=== PATIENT | female | born 1955 | race Caucasian/White ===

== ENCOUNTER → 2020-06-23 14:02 | Outpatient (BNVA) | payer MEDICARE, OTHER, SELFPAY | PROVIDERS: Visit Provider Dermatology | DX: D17.9 Benign lipomatous neoplasm, unspecified (principal); L57.0 Actinic keratosis; D18.01 Hemangioma of skin and subcutaneous tissue; Z12.83 Encounter for screening for malignant neoplasm of skin | CPT/HCPCS: 17000; 99203 ==

== ENCOUNTER → 2020-07-19 15:08 | Outpatient (BNVA) | payer MEDICARE, OTHER, SELFPAY | PROVIDERS: Visit Provider Registered Nurse | DX: E55.9 Vitamin D deficiency, unspecified (principal); E78.5 Hyperlipidemia, unspecified; E03.9 Hypothyroidism, unspecified | CPT/HCPCS: 80053; 80061; 82306; 84443; 85025 ==

== ENCOUNTER 2020-10-13 05:45 | Inpatient (IN) | payer MEDICARE, OTHER, SELFPAY ==
[2020-10-13] VITALS (23 sets, daily range): BP systolic 87–147; BP diastolic 50–81; PULSE 72–118; RESP 16–21; TEMP 36–37.3; O2SAT 94–100; BMI 28.2
--- NOTE | 2020-10-13 06:10 | ECG_ITS ---
[facility] Test Date: 2020-10-13 Pat Name: Mima Toth Department: Room: Gender: Female Pearl Digger: : 1955 Requested By: Librado Darling Order Number: [id number] Reading MD: JOE GALO Measurements Intervals [place] Rate: 97 P: 40 [place]: 138 QRS: 66 QRSD: 82 T: 67 QT: 345 QTc: 438 Interpretive Statements SINUS RHYTHM POSSIBLE RIGHT VENTRICULAR CONDUCTION DELAY [RSR (QR) IN V1/V2] SEPTAL MYOCARDIAL INFARCTION , OF INDETERMINATE AGE [40+ ms Q WAVE IN V1/V2] No previous ECG available for comparison Electronically Signed On 10-13-2020 19:37:31 WELT INSOLE CHANNELER by JOE GALO [id number]
--- NOTE | 2020-10-13 06:10 | XR_ITS ---
WS: [id number] ABDOMEN 1 VIEW(S) HISTORY: Constipation, low abdominal pain. COMPARISON: None available. Mild diffuse fecal retention. There are a few scattered small foci of increased density in the RIGHT colon and at the rectum is probably medicinal. No obstruction. No suspicious calcifications or masses. Diffuse osteopenia. Prior cholecystectomy. XR/XR KUB portable [id number] IMPRESSION: Mild constipation.
--- NOTE | 2020-10-13 06:22 | ED_ITS ---
HPI - Abdominal Pain General: Chief Complaint: Abdominal Pain Stated Complaint: constipated Time Seen by Provider: 10/13/20 06:07 History of Present Illness: HPI narrative: 65-year-old female presents emergency room complaining of stomach upset. She not had a bowel movement for the last couple of days. She took some laxatives that increased her cramping. She not had any fever sweats chills nausea vomiting or diarrhea. She denies dysuria urgency or frequency no myalgias or flulike symptoms. No cough or shortness of breath. MD elicited complaint: abdominal pain Pertinent past history: constipation Onset (ago): day(s) Pain Consistency: constant Location: Diffuse Severity: moderate Quality: cramping Radiation: none Migration to: no migration Exacerbating factors: other (Laxatives) Relieving factors: movement Associated Symptoms: Reports bloating, change in bowel habits, change in stool character, constipation and GI cramping; Denies anorexia, belching, chills, coffee ground emesis, diarrhea, dyspepsia, dysuria, excessive flatus, fever(s), heartburn, hematochezia, hematuria, hematemesis, fecal incontinence, loose stools, melena, nausea, poor appetite, syncope and vomiting Review of Systems Const: Denies: fever(s) or chills ENMT: Denies: throat pain, ear or mastoid pain, nasal discharge or nasal congestion Card: Denies: syncope Resp: Denies: dyspnea, productive cough or non-productive cough GI: Reports: constipation, bloating, GI cramping, change in bowel habits and change in stool character; Denies: nausea, vomiting, hematemesis, coffee ground emesis, heartburn, diarrhea, belching, excessive flatus, fecal incontinence, hematochezia or melena : Denies: dysuria or hematuria Skin/Breast: Denies: rash or pruritus PFSH ED PFSH: Medical History (Updated 10/13/20 @ 09:54 by Melvin Montilla MD) Anxiety disorder Hypothyroidism (acquired) Jerod's thyroiditis Vitamin D deficiency Surgical History (Updated 10/13/20 @ 09:54 by Melvin Montilla MD) Hx laparoscopic cholecystectomy Family History Father No problems noted. Other Diabetes Social History (Updated 10/13/20 @ 10:00 by Melvin Montilla MD) Smoking and tobacco status: former smoker Quit status (tobacco): has quit using tobacco Year quit tobacco: 2009 Former quit date comment: [id number] history prior to quitting Alcohol intake: current Alcohol intake frequency: few times a week Alcohol type: hard liquor Physical Exam Const: COMMON NORMALS: no acute distress GENERAL APPEARANCE: cooperative and comfortable ORIENTATION/CONSCIOUSNESS: Yes awake, Yes oriented to person, Yes oriented to place and Yes oriented to time HENMT: COMMON NORMALS: normocephalic, atraumatic and hearing grossly normal bilaterally HEAD & SCALP: normocephalic and atraumatic Neck/C-Spine: COMMON NORMALS: no JVD Resp: COMMON NORMALS: normal respiratory effort, No retractions, No use of accessory muscles and clear to auscultation bilaterally AUSCULTATION: clear to auscultation bilaterally Cardio: COMMON NORMALS: no JVD, regular rate, regular rhythm and No murmurs present (Cardio) RATE: regular rate RHYTHM: regular rhythm GI: COMMON NORMALS: Soft to palpation and No hepatosplenomegaly present AUSCULTATION: Yes normoactive bowel sounds PALPATION: Yes Soft to palpation, Yes Tenderness to palpation present (GI) Details: RLQ, No Guarding due to palpation present (GI) and Yes No hepatosplenomegaly present Extremity: COMMON NORMALS: normal to inspection, capillary refill normal, no clubbing, cyanosis or edema, no calf tenderness and no pedal edema Neuro: SENSORIUM/ORIENTATION: Yes oriented to person, Yes oriented to place and Yes oriented to time Skin: COMMON NORMALS: no rashes or lesions noted GENERAL SKIN EXAM: no rashes or lesions noted Course Vital Signs: Vital signs: Vital Signs Temperature 99.2 F 10/13/20 10:12 Pulse Rate 115 H 10/13/20 10:12 Respiratory Rate 18 10/13/20 10:12 Blood Pressure 125/69 10/13/20 10:12 Pulse Oximetry 96 10/13/20 10:12 MDM - Abdominal Pain MDM Narrative: Medical decision making narrative: Patient has an acute appendicitis as seen on CT. She also has a white count with a left shift. UA shows hematuria but nothing else at this point. Discussed with Dr. Montilla he will see the patient in the emergency room. Lab Data: Labs: Lab Results 10/13/20 10/13/20 10/13/20 Range/Units 07:20 07:20 08:00 WBC 14.2 H (4.0-10.0) 10^3/ uL RBC 5.08 (4.1-5.3) 10^6/u L Hgb 14.6 (11.5-15.3) g/dL Hct 46.1 (37.0-47.0) % MCV 90.7 (81-99) fL MCH 28.7 (28.0-34.0) pg MCHC 31.7 (30.0-36.0) g/dL RDW 12.1 (12.1-15.1) % Plt Count 242 (130-400) 10^3/c mm MPV 9.7 (7.4-10.4) fL Neut % (Auto) 88.9 % Lymph % (Auto) 5.6 % [place] % (Auto) 4.3 % Eos % (Auto) 0.0 % Baso % (Auto) 0.4 % Neut # (Auto) 12.59 H (1.8-7.7) 10^3/u L Lymph # (Auto) 0.8 (0.8-4.8) 10^3/u L [place] # (Auto) 0.6 (0.2-0.9) 10^3/u L Eos # (Auto) 0.0 (0.0-0.8) 10^3/u L Baso # (Auto) 0.1 (0.0-0.1) 10^3/u L Nucleated RBC % (a uto) 0 % Nucleated RBCs # 0.0 /100WBC Sodium 136 (136-145) mmol/L Potassium 4.7 (3.5-5.1) mmol/L Chloride 99 (98-107) mmol/L Carbon Dioxide 26 (22-29) mmol/L Anion Gap 15.7 (5-19) BUN 12 (8-23) mg/dL Creatinine 0.9 (0.5-0.9) mg/dL GFR Calculation 62.6 L (90-130) mL/min Glucose 162 H (65-115) mg/dL Calculated Osmolal ity 285 (285-295) mOsm/k g Calcium 9.9 (8.5-10.5) mg/dL Total Bilirubin 0.5 (0.15-1.2) mg/dL AST 18 (0-32) U/L ALT 15 (0-33) U/L Alkaline Phosphata se 86 (35-105) IU/L Total Protein 7.3 (6.6-8.7) g/dL Albumin 4.5 (3.5-5.2) g/dL Globulin 2.8 (1.3-4.6) g/dL Lipase 21 (13-60) U/L Urine Color Yellow (Yellow) Urine Appearance Clear (CLEAR) Urine pH 5.0 (5-7) Ur Specific Gravit y 1.025 (1.005-1.030) Urine Protein Trace (Negative) Urine Glucose (UA) Norm (Normal) Urine Ketones 3+ H (Negative) Urine Blood 3+ H (Negative) Urine Nitrate Negative (Negative) Urine Bilirubin 1+ H (Negative) Urine Urobilinogen Norm (Negative) mg/dL Ur Leukocyte Raegan ase Trace H (Negative) Urine RBC 50-80 H (0-2) /hpf Urine WBC 0-4 H (0-5) /hpf Ur Squamous Epith Cells 0-4 H (0-5) /hpf Amorphous Sediment Not Reportable Urine Bacteria 1+ H (NONE) /hpf Urine Mucus 1+ /hpf Discharge Plan Discharge Patient Disposition: Admitted As Inpatient Admit Provider: Melvin Montilla Clinical Impression: Acute appendicitis Condition: Stable Coding Level of Care Code 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
[2020-10-13 07:33] LABS: Basophils # 0.1 10^3/uL (0.0-0.1); Basophils % 0.4 %; Hematocrit 46.1 % (37.0-47.0); Hemoglobin 14.6 g/dL (11.5-15.3); Lymphocytes # 0.8 10^3/uL (0.8-4.8); Lymphocytes % 5.6 %; Mean Corpuscular HGB Conc 31.7 g/dL (30.0-36.0); Mean Corpuscular Hemoglobin 28.7 pg (28.0-34.0); Mean Corpuscular Volume 90.7 fL (81-99); Mean Platelet Volume 9.7 fL (7.4-10.4); Monocytes # 0.6 10^3/uL (0.2-0.9); Monocytes % 4.3 %; Neutrophils # 12.59 10^3/uL (1.8-7.7); Neutrophils % 88.9 %; Nucleated Red Blood Cells % 0 %; Platelet Count 242 10^3/cmm (130-400); Red Blood Count 5.08 10^6/uL (4.1-5.3); Red Cell Distribution Width 12.1 % (12.1-15.1); White Blood Count 14.2 10^3/uL (4.0-10.0)
[2020-10-13 08:01] LABS: Alanine Aminotransferase 15 U/L (0-33); Albumin Level 4.5 g/dL (3.5-5.2); Alkaline Phosphatase 86 IU/L (35-105); Blood Urea Nitrogen 12 mg/dL (8-23); Calcium 9.9 mg/dL (8.5-10.5); Carbon Dioxide 26 mmol/L (22-29); Chloride 99 mmol/L (98-107); Creatinine Clr Calc Pharmacy 59.4395; Globulin 2.8 g/dL (1.3-4.6); Glomerular Filtration Rate 62.6 mL/min (90-130); Glucose 162 mg/dL (65-115); Lipase 21 U/L (13-60); Osmolality Calculated 285 mOsm/kg (285-295); Sodium 136 mmol/L (136-145); Total Bilirubin 0.5 mg/dL (0.15-1.2); Total Protein 7.3 g/dL (6.6-8.7)
[2020-10-13 08:03] LABS: Anion Gap 15.7 (5-19); Potassium 4.7 mmol/L (3.5-5.1)
[2020-10-13 08:04] LABS: Aspartate Amino Transferase 18 U/L (0-32)
[2020-10-13 08:24] LABS: Add Urine Microscopic? YES; Bilirubin Urine 1+ (Negative); Blood Urine 3+ (Negative); Glucose Urine UA Norm (Normal); Ketones Urine 3+ (Negative); Leukocyte Esterase Urine Trace (Negative); Nitrate Urine Negative (Negative); Protein Urine Trace (Negative); Specific Gravity, Urine 1.025 (1.005-1.030); Urine Appearance Clear (CLEAR); Urine Color Yellow (Yellow); Urobilinogen Urine Norm (Negative)
--- NOTE | 2020-10-13 08:29 | CT_ITS ---
WS: [id number] Exam: CT abdomen pelvis w con* [id number] Date/Time of Exam: 10/13/2020 8:38 AM Reason For Exam: abd pain DLP: 475.[address] scans at [facility] use at least one of these dose optimization techniques: automat ed exposure control; mA and/or kV adjustment per patient size (includes targeted exams where dose is matched to clinical indication); or iterative reconstruction. Lower lung zones are clear. The liver, spleen, pancreas and stomach appear normal. The abdominal aort a is normal in caliber. Unremarkable kidneys and adrenal glands. The portal vein and IVC are patent. No free air or lymphadenopathy. The gallbladder is surgically absent. Enlarged inflamed appendix note d consistent with acute appendicitis. No perforation or abscess. The appendix measures almost 12 mm i n greatest diameter. There is extensive periappendiceal inflammation and stranding. There is mild dil atation of the terminal ileum. This may represent early small bowel obstruction versus reactive ileu s. Small amount of free interloop fluid in the pelvis. No pelvic mass or lymphadenopathy. Intact urin hilda bladder. Bony structures are unremarkable. CT/CT abdomen pelvis w con* [id number] IMPRESSION: 1. Findings consistent with acute appendicitis without perforation or abscess. 2. Mild dilatation of the terminal ileum. Early small bowel obstruction not exc luded but this may represent reactive ileus These findings were discussed by phone with Dr. Servin the attending ER bradley noel at 9:13 AM 10/13/2020.
[2020-10-13 08:38] LABS: RBC Urine 50-80 /hpf (0-2)
[2020-10-13 08:39] LABS: Add Urine Culture? Yes; Bacteria Urine 1+ /hpf; Mucus Urine 1+ /hpf; Squamous Epithelial Cell Urine 0-4 /hpf (0-5); WBC Urine 0-4 /hpf (0-5)
[2020-10-13] MEDS: iohexol 300 mg/mL 100 mL Btl IV (08:53)
--- NOTE | 2020-10-13 09:01 | PC.NURSE ---
pt back from ct
[2020-10-13] MEDS: ondansetron 2 mg/ML SDV 2 mL 4 MG IVP (09:35)
--- NOTE | 2020-10-13 09:35 | PM.HP ---
Providers/Chief Complaint Chief Complaint: constipated/abdominal pain History of Present Illness Mima Toth is a 65 year old female who started having some epigastric abdominal discomfort 2 days ago. She initially just thought she was constipated even though she had had a normal bowel movement the day before. She took some Pepto-Bismol and some laxatives but continued to have pain yesterday. This was associated with nausea and retching. She has had some chills but I do not believe she is taken her temperature at home. Her pain increased to a 10/10 at around 2 AM this morning. She eventually came to the emergency department where a CAT scan revealed evidence of acute appendicitis. Review of Systems General: Reports: 10 or more systems reviewed and unremarkable except in HPI and below Const: Reports: chills Resp: Denies: dyspnea or productive cough GI: Reports: abdominal pain, nausea and vomiting (Retching); Denies: hematemesis : Denies: difficulty voiding Medications/Allergies Home Medications Medication Instructions Recorded Confirmed Last Taken Type levothyroxine 88 mcg tablet 88 mcg PO DAILY 07/19/20 09/09/20 Unknown History bupropion HCl 300 mg 24 hr tablet, 300 mg PO QAM #90 tab 09/09/20 09/09/20 Unknown Rx extended release Allergies Allergy/AdvReac Type Severity Reaction Status Date / Time codeine AdvReac Nausea Verified 10/13/20 10:01 PFSH Acute PFSH: Medical History (Updated 10/13/20 @ 09:54 by Melvin Montilla MD) Anxiety disorder Hypothyroidism (acquired) Jerod's thyroiditis Vitamin D deficiency Surgical History (Updated 10/13/20 @ 09:54 by Melvin Montilla MD) Hx laparoscopic cholecystectomy Family History Father No problems noted. Other Diabetes Social History (Updated 10/13/20 @ 10:00 by Melvin Montilla MD) Smoking and tobacco status: former smoker Quit status (tobacco): has quit using tobacco Year quit tobacco: 2009 Former quit date comment: 37-ltrk-bagt history prior to quitting Alcohol intake: current Alcohol intake frequency: few times a week Alcohol type: hard liquor Vitals/I&O/Wt Last Vital Signs Temp 98 F 10/13/20 05:58 Pulse 82 10/13/20 05:52 Resp 18 10/13/20 08:00 BP 147/68 10/13/20 08:00 Pulse Ox 98 10/13/20 05:52 Weight last 48 hrs Weight 135 lb Physical Exam Narrative: EXAM NARRATIVE: The patient was encountered in her room in the emergency department. She does not appear to be in any acute distress. The pupils are equal. No carotid bruits are heard. The lungs are clear. The heart is regular. The patient may be borderline tachycardic. The abdomen reveals few bowel sounds. She does have some mild tenderness in the left lower quadrant with an equivocal Rovsing's sign. Her maximum point of tenderness is in the right lower quadrant over McBurney's point. Percussion tenderness is present. No obvious masses are palpated. The extremities reveal no edema. Neurologically the patient appears to be grossly intact. Data : 10/13/20 07:20 10/13/20 07:20 CT Abd/Pel: Radiologist's impression: CT abdomen/pelvis 10/13/2020 IMPRESSION: 1. Findings consistent with acute appendicitis without perforation or abscess. 2. Mild dilatation of the terminal ileum. Early small bowel obstruction not excluded but this may represent reactive ileus A&P Assessment and plan (1) Acute appendicitis: CT reviewed. I agree with the assessment. I discussed appendicitis and appendectomy's with the patient in some detail. We discussed details of both conservative and surgical management. Surgical risks of bleeding, infection, internal organ injury, etc. were all gone over. The patient seems to understand and would like to proceed with an appendectomy today. The last time the patient had anything by mouth was 2 AM this morning. We will make arrangements for a laparoscopic or possibly open appendectomy later this morning. Status: Acute Attestations Medical Necessity Statement*: Based on my medical assessment, presenting symptoms and consideration of the scope of surgical therapy, I expect this patient will require treatment in the hospital for a period of time spanning less than 2 midnights, and is therefore being placed in observation status. The patient is actually already requesting to possibly go home later today. I told her if there are no contraindications or problems with surgery that will be a good possibility. Coding Level of Care Code Acute Produce Team Member for [facility] Reece Diagnoses Acute appendicitis K35.80
[2020-10-13] MEDS: piperacillin-tazobactam 4.5 GM in sodium chloride 0.9% (plus) 50 ML IV (09:58)
--- NOTE | 2020-10-13 10:18 | P.ANESASSM_ITS ---
Pre-Anesthetic Assessment Pre-Anesthetic Assessment: Height/Weight: Height 1.47 m Weight 61.235 kg Temp Pulse Resp BP Pulse Ox 99.2 F 115 H 18 125/69 96 10/13/20 10:12 10/13/20 10:12 10/13/20 10:12 10/13/20 10:12 10/13/20 10:12 Preop Diagnosis: acute appendicitis Proposed Procedure: Operation Date: 10/13/20 10:30 Proposed Procedures p Laparoscopic Appendectomy(Not Applicable) - Melvin Montilla MD Was Beta Vargas taken within 24 hours: N/A Last intake: 0200 water Social: Social History: Alcohol (1 dram aday ) and No tobacco Exam: Pre-Anes Outpt Exam: alert, oriented x 3, clear to auscultation bi laterally and regular rate & rhythm Airway: Submandibular: WNL Cervical ROM: WNL MP: 2 Dentition: Full Pulmonary: Pulmonary: None reported CV/HEM: CV/HEM: None reported : : None reported Hepatic: Hepatic: None reported GI: Comments: abd pain Metabolic: Metabolic: Thyroid Musc/skel: Musc/skel: None reported Neuropsych: Neuropsych: None reported Anesthetic Plan: ASA status: 2E Anesthesia: General PFSH Anesthesia PFSH: Medical History (Updated 10/13/20 @ 09:54 by Melvin Montilla MD) Anxiety disorder Hypothyroidism (acquired) Jerod's thyroiditis Vitamin D deficiency Surgical History (Updated 10/13/20 @ 09:54 by Melvin Montilla MD) Hx laparoscopic cholecystectomy Family History Father No problems noted. Other Diabetes Social History (Updated 10/13/20 @ 10:00 by Melvin Montilla MD) Smoking and tobacco status: former smoker Quit status (tobacco): has quit using tobacco Year quit tobacco: 2009 Former quit date comment: 60-kaji-zwyn history prior to quitting Alcohol intake: current Alcohol intake frequency: few times a week Alcohol type: hard liquor Data Anesthesia CBC & Chem 7: 10/13/20 07:20 10/13/20 07:20 Other Labs: Laboratory Results - last 48 hr 10/13/20 10/13/20 10/13/20 07:20 07:20 08:00 WBC 14.2 H RBC 5.08 Hgb 14.6 Hct 46.1 MCV 90.7 MCH 28.7 MCHC 31.7 RDW 12.1 Plt Count 242 MPV 9.7 Neut % (Auto) 88.9 Lymph % (Auto) 5.6 [place] % (Auto) 4.3 Eos % (Auto) 0.0 Baso % (Auto) 0.4 Neut # (Auto) 12.59 H Lymph # (Auto) 0.8 [place] # (Auto) 0.6 Eos # (Auto) 0.0 Baso # (Auto) 0.1 Nucleated RBC % (auto) 0 Nucleated RBCs # 0.0 Sodium 136 Potassium 4.7 Chloride 99 Carbon Dioxide 26 Anion Gap 15.7 BUN 12 Creatinine 0.9 GFR Calculation 62.6 L Glucose 162 H Calculated Osmolality 285 Calcium 9.9 Total Bilirubin 0.5 AST 18 ALT 15 Alkaline Phosphatase 86 Total Protein 7.3 Albumin 4.5 Globulin 2.8 Lipase 21 Urine Color Yellow Urine Appearance Clear Urine pH 5.0 Ur Specific [place] 1.025 Urine Protein Trace Urine Glucose (UA) Norm Urine Ketones 3+ H Urine Blood 3+ H Urine Nitrate Negative Urine Bilirubin 1+ H Urine Urobilinogen Norm Ur Leukocyte Esterase Trace H Urine RBC 50-80 H Urine WBC 0-4 H Ur Squamous Epith Cells 0-4 H Amorphous Sediment Not Reportable Urine Bacteria 1+ H Urine Mucus 1+ Cardiac Studies: No Data to Display
[2020-10-13] MEDS: sodium chlor 0.9% + KCl 20 mEq 20 MEQ/1,000 ML BAG 30 MEQ IV (10:46)
[2020-10-13] MEDS: metroNIDAZOLE IV 500 MG/100 ML PREMIX 100 MG IV (10:51)
--- NOTE | 2020-10-13 11:42 | P.OP_ITS ---
Operative Report Date of procedure: October 13, 2020 Pre-op Diagnosis: Acute appendicitis. Post-op diagnosis: same Procedure Done: Laparoscopic appendectomy. Specimens removed/disposition: Appendix. Surgeon: Melvin Montilla Anesthesia: General Estimated blood loss (mL): 25 Complications: None. Condition: stable Disposition: PACU Procedure: The patient was brought to the Operating Room and was placed in a supine position on the operating room table. General endotracheal anesthesia was induced. The abdomen was prepped and draped in a sterile fashion. A small vertical incision was carried out in the superior aspect of the umbilicus. Blunt dissection was carried out down to the fascia, which was grasped with a Jory clamp. A stay suture of 0 Vicryl was placed on either side of the midline and the midline fascia was incised. The underlying peritoneum was opened bluntly and the Seema port was placed directly into the peritoneal cavity and was held in place with the inflatable balloon. The peritoneal cavity was insufflated with carbon dioxide. The laparoscope was used to inspect the peritoneal cavity. The patient had some subacute adhesions with some exudate present in the right lower quadrant. No other gross abnormalities were initially noted. Two 5-millimeter ports were placed in the left lower quadrant under direct vision. The patient was tilted in a Trendelenburg position and slightly to the left side. A laparoscopic [place] was used to elevate the cecum and the appendix was identified. The appendix was stuck posteriorly and somewhat laterally along the pelvic sidewall. There were some adhesions that were clearly subacute involving the region but others that seem more chronic. All of the adhesions were taken down using blunt dissection with some cautery to maintain hemostasis. The appendix was further freed using blunt dissection and was then elevated. The tissue around the appendix was friable and some oozing occurred from the mesoappendix and surrounding tissue. The mesoappendix was divided using cautery to maintain hemostasis at the base of the appendix. The base of the appendix appeared healthy and was divided using an endoscopic stapler. The appendix was removed from the peritoneal cavity after being placed in a laparoscopic bag. The right lower quadrant and pelvis were irrigated. The patient was found to have some small bowel loops that were adherent to each other with some exudate and these were all carefully but no defined abscess was ever found. The staple line on the cecum was identified and appeared to be in good condition. The Seema port was removed from the umbilical site and the stay sutures of Vicryl were tied to each other at the umbilicus, closing the fascial defect so that it was airtight. A final round of irrigation was carried out in the right lower quadrant and the pelvis. No ongoing problems were seen. The remaining ports were removed from the abdominal wall as the pneumoperitoneum was evacuated. All skin incisions were closed using inverted interrupted sutures of 4-0 Vicryl. Benzoin and Steri-Strips were placed over the incisions and Band- Aids followed. The patient was taken to the Recovery Room in stable condition postoperatively.
--- NOTE | 2020-10-13 12:05 | SUR.PHASEI ---
PT AWAKE ALERT ON RA TRIAL PT DENIES NAUSEA AND COLD VSS ABD SOFT, PT ASKING FOR ICE CHIPS WILL CALL REPORT TO FLOOR
--- NOTE | 2020-10-13 12:41 | SUR.PHASEI ---
1230 PT TO FLOOR PER BED WITH MASK ON , PT ALERT TALKATIVE TAKING ICE CHIPS VSS PT UP WALKED TO BED ABD SOFT 3 DRESSING TO AB D/I HANDOFF AT BEDSIDE TO NURSE SLEENA.
[2020-10-13] MEDS: D5-NS 0.45% + KCL 20 mEq 20 MEQ/1,000 ML BAG 100 MEQ IV (12:52)
[2020-10-13] MEDS: famotidine 20 mg/2 mL INJ IVP (12:54)
[2020-10-13] MEDS: ketorolac 30 mg/mL INJ 15 MG IVP ×2 (12:54→17:48)
[2020-10-13] MEDS: piperacillin-tazobactam 3.375 GM in sodium chloride 0.9% (plus) 50 ML IV ×2 (12:54→21:38)
[2020-10-13] MEDS: heparin 5,000 unit/mL INJ 1 mL 5000 UNIT SUBCUT (12:54)
[2020-10-13] MEDS: levalbuterol 0.63 mg/3 mL Neb INHALATION ×3 (14:12→20:01)
[2020-10-13] MEDS: lactated ringers 500 ML 999 ML IV (16:18)
--- NOTE | 2020-10-13 18:56 | PC.NURSE ---
SHIFT SUMMARY PATIENT HAS DONE WELL TODAY. NO COMPLAINTS OF PAIN. SURGICAL INCISIONS C/D/I. GOOD URINE OUTPUT. TOLERATING DIET WELL. VITAL SIGNS GOOD. BP SOFT, PATIENT STATED THAT THIS IS HER NORMAL. DR. ALEMAN MADE AWARE. POSSIBLE DISCHARGE TOMORROW.
--- NOTE | 2020-10-13 21:06 | PM.PACU ---
PACU note Post-Anesthesia Exam: awake and vital signs stable Disposition: back to floor
[2020-10-13] MEDS: lanolin oint 7 gm 1 APPLIC TOPICAL (22:45)
[2020-10-14] VITALS (10 sets, daily range): BP systolic 96–119; BP diastolic 51–74; PULSE 61–89; RESP 16–18; TEMP 36.4–37.2; O2SAT 94–100
[2020-10-14] MEDS: D5-NS 0.45% + KCL 20 mEq 20 MEQ/1,000 ML BAG 100 MEQ IV ×3 (00:37→21:24)
[2020-10-14] MEDS: heparin 5,000 unit/mL INJ 1 mL 5000 UNIT SUBCUT ×2 (00:37→12:51)
[2020-10-14] MEDS: famotidine 20 mg/2 mL INJ IVP ×2 (00:41→12:11)
[2020-10-14] MEDS: ketorolac 30 mg/mL INJ 15 MG IVP ×4 (00:41→18:13)
[2020-10-14 03:12] LABS: Basophils % 0.1 %; Hematocrit 35.5 % (37.0-47.0); Hemoglobin 11.3 g/dL (11.5-15.3); Lymphocytes # 0.9 10^3/uL (0.8-4.8); Lymphocytes % 6.8 %; Mean Corpuscular HGB Conc 31.8 g/dL (30.0-36.0); Mean Corpuscular Hemoglobin 29.3 pg (28.0-34.0); Mean Platelet Volume 9.1 fL (7.4-10.4); Monocytes # 0.9 10^3/uL (0.2-0.9); Monocytes % 6.2 %; Neutrophils # 11.83 10^3/uL (1.8-7.7); Neutrophils % 85.6 %; Nucleated Red Blood Cells % 0 %; Platelet Count 196 10^3/cmm (130-400); Red Blood Count 3.86 10^6/uL (4.1-5.3); Red Cell Distribution Width 12.4 % (12.1-15.1); White Blood Count 13.8 10^3/uL (4.0-10.0)
[2020-10-14 03:43] LABS: Anion Gap 13.2 (5-19); Blood Urea Nitrogen 12 mg/dL (8-23); Calcium 8.5 mg/dL (8.5-10.5); Carbon Dioxide 24 mmol/L (22-29); Chloride 107 mmol/L (98-107); Glomerular Filtration Rate 71.8 mL/min (90-130); Glucose 187 mg/dL (65-115); Osmolality Calculated 295 mOsm/kg (285-295); Potassium 4.2 mmol/L (3.5-5.1); Sodium 140 mmol/L (136-145)
[2020-10-14] MEDS: piperacillin-tazobactam 3.375 GM in sodium chloride 0.9% (plus) 50 ML IV ×3 (05:30→21:21)
--- NOTE | 2020-10-14 07:07 | P.PN_ITS ---
Subjective Subjective: Interval history: The patient is somewhat sore this morning. She is passing flatus. She is a little nervous about going home because she had a vaginal tear during a previous and the area got infected twice. She was wondering if she needed to stay here longer for more intravenous antibiotics. She continues on intravenous Zosyn. Vitals/I&O/Wt Last Vital Signs Temp 97.8 F 10/14/20 05:12 Pulse 83 10/14/20 05:12 Resp 18 10/14/20 05:12 BP 107/63 10/14/20 05:12 Pulse Ox 98 10/14/20 05:12 10/13/20 10/14/20 10/14/20 22:59 06:59 14:59 Intake Total 1050 / 1250 50 / 1250 Output Total 300 / 1225 800 / 1225 Balance 750 / 25 -750 / 25 Weight last 48 hrs Weight 135 lb Physical Exam Narrative: EXAM NARRATIVE: Bowel sounds are present. The incisions look good. She has the expected amount of tenderness. Urinary Catheter Management^: Straight: Cath Placed During This Visit: no Data : 10/14/20 02:43 10/14/20 02:43 A&P Assessment and plan (1) Acute appendicitis: Status post laparoscopic appendectomy on 10/13/2020. The patient had quite a bit of exudate and and early phlegmon in the right lower quadrant at the time of laparoscopy, but no marleen abscess was identified. Her white blood cell count, not surprisingly, remains somewhat elevated this morning. She is afebrile. Given her concerns regarding infections, I told her that we could leave her here and at least reevaluate the situation later this afternoon. I told her that we always have the option of sending her home on an oral antibiotic, which is what I would probably elect to do, anyway. She would like to rediscuss the situation this afternoon. Status: Acute Attestations Medical Necessity Statement*: Based on my medical assessment, presenting symptoms and consideration of the scope of surgical therapy, I expect this patient will require treatment in the hospital for a period of time spanning less than 2 midnights, and is therefore being placed in observation status. We will evaluate her situation later this afternoon. Coding Level of Care Code Acute Product Safety Coordinator for [facility] Diagnoses Acute appendicitis K35.80
[2020-10-14] MEDS: levalbuterol 0.63 mg/3 mL Neb INHALATION ×3 (08:29→21:20)
--- NOTE | 2020-10-14 11:14 | ANE.PACU2 ---
Inpatient post-anesthesia follow up: Airway intact: Yes Vital signs: Temperature 97.6 F Pulse Rate [Monito r] 82 Pulse Rate 85 Respiratory Rate 16 Blood Pressure [Le ft Arm] 116/58 Blood Pressure 99/51 Pulse Oximetry 100 Oxygen Delivery Me thod Room Air Oxygen Flow Rate 8 Fraction of Inspir ed Oxygen Hydration adequate: Yes Nausea and vomiting: No Pain level: 1 Mental status: Baseline
--- NOTE | 2020-10-14 13:55 | PC.CHAP ---
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 [] Patient/Family/Request visit [] Outpatient visit [] Follow-up visit [] Physician referral [] Code/Alert [x] Routine visit [] Staff referral [] Actively dying [] Patient sleeping [] Family support [] [] Out of room [] Palliative care [] [x] Receiving care in room [] Pre-surgical visit [] Trauma [] Long length of stay [] ICU visit [] Other: Relational/Emotional Strength [x] Patient feels connected with others/family/visitors/staff [] Distress [] Loneliness/isolation [] Abandonment Spirituality of Patient [x] Person of Ying [] Attends Islam of their Ying [x] Believes in Prayer [] Reads Bible or Pentecostalism materials [] There are Spiritual issues to be addressed Clinical Trial Leader Interventions [x] Prayer [x] Active listening [x] Non-anxious presence [x] Spiritual/emotional support [] Crisis/trauma care [x] Spiritual counseling [] Bereavement support [] Provided bereavement packet [] Provided Bible/devotional materials [] Provided toy/stuffed animal, coloring book to patient or family member [] Provided Communion [] Anointing/[place] [] Salvation [x] Completed spiritual assessment [] Other: Impact on Illness or Injury [] Angry [] Fearful [x] Anxious [] Often cries [] Exhaustion [] Unable to work [] Unable to attend faith [] Unable to walk/stand [] Unable to read [] Unable to drive [] Unable to eat/drink [] Unable to sleep [] Unable to be with family [] Patient intubated [] Other: Summary In pain had apendex surgery ihas a good attitude, will get to home Time spent with patient 10 mins
[2020-10-15] VITALS: BP 118/70; PULSE 86; RESP 16; TEMP 36.3; O2SAT 98
[2020-10-15] MEDS: heparin 5,000 unit/mL INJ 1 mL 5000 UNIT SUBCUT (01:04)
[2020-10-15] MEDS: ketorolac 30 mg/mL INJ 15 MG IVP ×2 (01:05→06:19)
[2020-10-15] MEDS: famotidine 20 mg/2 mL INJ IVP (01:06)
[2020-10-15 04:00] VITALS: BP 129/81; PULSE 88; RESP 20; TEMP 36.6; O2SAT 99
[2020-10-15] MEDS: piperacillin-tazobactam 3.375 GM in sodium chloride 0.9% (plus) 50 ML IV (04:58)
[2020-10-15 06:03] LABS: Basophils # 0.1 10^3/uL (0.0-0.1); Basophils % 0.5 %; Eosinophils # 0.2 10^3/uL (0.0-0.8); Eosinophils % 1.5 %; Hematocrit 36.2 % (37.0-47.0); Lymphocytes # 2.7 10^3/uL (0.8-4.8); Lymphocytes % 25.1 %; Mean Corpuscular HGB Conc 30.4 g/dL (30.0-36.0); Mean Corpuscular Hemoglobin 28.9 pg (28.0-34.0); Mean Corpuscular Volume 95.3 fL (81-99); Mean Platelet Volume 9.3 fL (7.4-10.4); Monocytes # 0.7 10^3/uL (0.2-0.9); Monocytes % 6.1 %; Neutrophils # 6.98 10^3/uL (1.8-7.7); Neutrophils % 65.7 %; Nucleated Red Blood Cells % 0 %; Platelet Count 209 10^3/cmm (130-400); Red Cell Distribution Width 12.8 % (12.1-15.1); White Blood Count 10.6 10^3/uL (4.0-10.0)
[2020-10-15] MEDS: HYDROcodone-acetaminophen 5-325 mg Tablet PO (07:40)
[2020-10-15] MEDS: D5-NS 0.45% + KCL 20 mEq 20 MEQ/1,000 ML BAG 100 MEQ IV (07:40)
[2020-10-15 08:00] VITALS: BP 97/60; PULSE 80; RESP 18; TEMP 36.7; O2SAT 98
--- NOTE | 2020-10-15 09:26 | P.DS_ITS ---
Discharge Providers Date of Admission: 10/14/20 14:46 Date of Discharge: October 15, 2020 Attending Provider at Admission: Melvin Montilla MD Attending Provider at Discharge: Melvin Montilla MD Diagnoses at Discharge Discharge Diagnosis (1) Acute appendicitis: Status: Acute Reason for Visit Reason for Visit: constipated/abdominal pain Hospital Course Hospital Course This is a 65-year-old white female who developed abdominal pain in the days preceding her presentation to the local emergency department where a CAT scan showed evidence of acute appendicitis. At the time of laparoscopy she was found to have no gross evidence of perforation but there was some light inflammatory peel in the abdomen and the presence of perhaps an early phlegmon. An appendectomy was performed and her peritoneal cavity was extensively irrigated out. She was kept on broad-spectrum antibiotics postoperatively. The following day her white blood cell count remained mildly elevated although she was afebrile. She had had a previous experience with a vaginal infection/dehiscence x2 following a repair years ago after childbirth, and had no objection to staying in the hospital for another day of intravenous antibiotics. The following morning her white blood cell count had essentially returned to normal. She remained afebrile. She was tolerating a soft diet. We discussed her going home on some oral antibiotics and she was anxious to leave that second day. She was instructed with respect to activity limitations, wound care, diet, etc. An appointment will be made for her to follow-up with me in the office as an outpatient. She will contact me in the interim if she has any concerns. Physical Exam Narrative: EXAM NARRATIVE: At the time of discharge the patient had good bowel sounds in all of her laparoscopic incisions appear to be healing well. Urinary Catheter Management^: Straight: Cath Placed During This Visit: no Discharge Data Data Completed and Pending: Completed Studies During Hospitalization Category Date Time Status CT abdomen pelvis w con* [id number] Stat Cat Scan 10/13/20 08:29 Completed XR KUB portable [id number] Stat Exams 10/13/20 06:10 Completed Pending at discharge Category Date Time Status Urine Culture Sta t Lab 10/13/20 08:00 Results Pathology: Surgic al [PTH] Routine Pth 10/13/20 11:37 Received Labs from last 24 hours 10/15/20 05:35 WBC 10.6 H RBC 3.80 L Hgb 11.0 L Hct 36.2 L MCV 95.3 MCH 28.9 MCHC 30.4 RDW 12.8 Plt Count 209 MPV 9.3 Neut % (Auto) 65.7 Lymph % (Auto) 25.1 [place] % (Auto) 6.1 Eos % (Auto) 1.5 Baso % (Auto) 0.5 Neut # (Auto) 6.98 Lymph # (Auto) 2.7 [place] # (Auto) 0.7 Eos # (Auto) 0.2 Baso # (Auto) 0.1 Nucleated RBC % (a uto) 0 Nucleated RBCs # 0.0 Vitals: Last Vital Signs Temp 98.0 F 10/15/20 08:00 Pulse 80 10/15/20 08:00 Resp 18 10/15/20 08:00 BP 97/60 10/15/20 08:00 Pulse Ox 98 10/15/20 08:00 Discharge Plan Discharge Patient Disposition: Home Condition: Stable Prescriptions: New hydrocodone-acetaminophen 5-325 mg tablet 1 - 2 tab PO Q5H PRN (Reason: pain) Qty: 20 RF: 0 Augmentin 500-125 mg tablet 1 tab PO BID Qty: 15 RF: 0 Continued levothyroxine 88 mcg tablet 88 mcg PO DAILY RF: 0 bupropion HCl [Wellbutrin XL] 300 mg tablet extended release 24 hr 300 mg PO QAM Qty: 90 RF: 3 zinc 1 cap PO DAILY PRN (Reason: unknown) RF: 0 Discharge Orders: Discharge Order (Routine); Ordered 10/15/20 Ordered By: Melvin Montilla Referrals: Melvin Montilla MD [Physician] - 10/26/20 3:30 pm (s.) Discharge Diet: Advance as tolerated Discharge Activity: Limit activity as instructed Patient Instructions: Hydrocodone/Acetaminophen (By mouth), Amoxicillin/Clavulanate Potassium (By mouth), Appendicitis (GEN), Laparoscopic Appendectomy (DC) Activity Restrictions/Additional Instructions: 1. Discharge to home today. 2. Appointment to see Dr. Montilla in 10-14 days as above. 3. Leave Steri-Strip(s) on, may shower. 4. [place] 5/325 1-2 tablets by mouth every 5 hours as needed for pain. #20, no refills. 5. Augmentin 500/125 1 tablet by mouth twice daily until gone. Dispense #15, no refills. No lifting over 20 pounds, no repetitive bending or twisting, no strenuous pushing / pulling or other heavy activity. Ambulate regularly. May go up and down steps if needed. 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
[2020-10-15 11:07] VITALS: BP 97/60; PULSE 80; RESP 18; TEMP 36.7; O2SAT 98
--- NOTE | 2020-10-15 11:09 | PC.CHAP ---
Pastoral Care Encounter/Spiritual Assessment Type of Contact [] Declined provider relations consultant visit [] Patient/Family/Request visit [] Outpatient visit [] Follow-up visit [] Physician referral [] Code/Alert [] Routine visit [] Staff referral [] Actively dying [] Patient sleeping [] Family support [] [] Out of room [] Palliative care [] [xx] Receiving care in room [] Pre-surgical visit [] Trauma [] Long length of stay [] ICU visit [xx] Other: Follow up needed Relational/Emotional Strength [] Patient feels connected with others/family/visitors/staff [] Distress [] Loneliness/isolation [] Abandonment Spirituality of Patient [] Person of Ying [] Attends Latter Day of their Ying [] Believes in Prayer [] Reads Bible or Voodoo materials [] There are Spiritual issues to be addressed Electrotherapist Interventions [] Prayer [] Active listening [] Non-anxious presence [] Spiritual/emotional support [] Crisis/trauma care [] Spiritual counseling [] Bereavement support [] Provided bereavement packet [] Provided Bible/devotional materials [] Provided toy/stuffed animal, coloring book to patient or family member [] Provided Communion [] Anointing/[place] [] Salvation [] Completed spiritual assessment [] Other: Impact on Illness or Injury [] Angry [] Fearful [] Anxious [] Often cries [] Exhaustion [] Unable to work [] Unable to attend mandaeism [] Unable to walk/stand [] Unable to read [] Unable to drive [] Unable to eat/drink [] Unable to sleep [] Unable to be with family [] Patient intubated [] Other: Summary Med staff was working with patient so Electrotherapist did not interrupt. Time spent with patient 2 minutes
--- NOTE | 2020-10-15 11:19 | PC.NURSE ---
DC instruction given to patient voiced full understanding, IV DC'd cath intact bleeding controlled with 2x2 and coban. patient to main entrance via wheelchair to private vehicle with zero difficulties
== END 2020-10-15 11:19 | disposition home or self-care (01) | DRG 343 ==
LOC: ER 09:58 → MEDSURG 10:01
PROVIDERS: Admitting Provider Surgery; Emergency Provider Family Medicine; Visit Provider Surgery
PROC: 0DTJ4ZZ Resection of Appendix, Percutaneous Endoscopic Approach (ICD-10-PCS; CPT 44970; principal; 2020-10-13 10:30)
DX: K35.80 Unspecified acute appendicitis (principal); F41.9 Anxiety disorder, unspecified; E03.9 Hypothyroidism, unspecified; E55.9 Vitamin D deficiency, unspecified; Z87.891 Personal history of nicotine dependence
CPT/HCPCS: 12345; 36415; 74018; 74177; 80048; 80053; 81001; 83690; 85025; 87077; 87086; 87186; 88304; 93005; 94640; 96372; 96375; 99283; G0378; J0131; J0690; J1100; J1644; J1885; J2405; J2543; J2704; J2710; J2765; J3010; J3490; J7614; Q9967; S0030

== ENCOUNTER 2020-10-16 16:42 | Emergency (ER) | payer MEDICARE, OTHER, SELFPAY ==
[2020-10-16 16:53] VITALS: BP 101/68; PULSE 153; RESP 20; TEMP 36.6; O2SAT 96; BMI 28.2
--- NOTE | 2020-10-16 16:58 | XRR_ITS ---
PROCEDURE INFORMATION: Exam: XR Chest, 1 View Exam date and time: 10/16/2020 5:04 PM Age: 65 years old Clinical indication: Tachypnea; Additional info: Palpitations TECHNIQUE: Imaging protocol: XR of the chest Views: 1 view. COMPARISON: No relevant prior studies available. FINDINGS: Lungs: The lungs are hyperinflated with mild basilar fibrosis. There is also mild left basilar atelectasis versus scarring. There is no lobar consolidation. The pulmonary vascularity is within normal limits. Pleural space: Unremarkable. No pleural effusion. No pneumothorax. Heart/Mediastinum: Unremarkable. No cardiomegaly. Bones/joints: No acute abnormality. XR/XR chest 1V portable [id number] IMPRESSION: The lungs are hyperinflated with mild basilar fibrosis. There is also mild left basilar atelectasis versus scarring.
--- NOTE | 2020-10-16 16:58 | CTR_ITS ---
PROCEDURE INFORMATION: Exam: CT Angiography Chest With Contrast Exam date and time: 10/16/2020 5:33 PM Age: 65 years old Clinical indication: Other: Tachyccardia; Prior surgery; Surgery date: 3-7 days post-operative; Patient HX: 3 days post op appy C/O tachycardia; Additional info: Dyspnea, new onset a. Fib, recent surgery. TECHNIQUE: Imaging protocol: Computed tomographic angiography of the chest with intravenous contrast. 3D rendering (Not supervised by radiologist): MIP and/or 3D reconstructed images were created by the technologist. Radiation optimization: All CT scans at this facility use at least one of these dose optimization techniques: automated exposure control; mA and/or kV adjustment per patient size (includes targeted exams where dose is matched to clinical indication); or iterative reconstruction. Contrast material: OMNI 350; Contrast volume: 58 ml; Contrast route: INTRAVENOUS (IV); COMPARISON: CR (CHEST, ) 10/16/2020 5:23 PM RADIATION DOSE METRICS: Total DLP (mGy-cm): 492.42 FINDINGS: Pulmonary arteries: There is no pulmonary embolus. Aorta: Unremarkable. No aortic aneurysm. No aortic dissection. Lungs: There is right basilar atelectasis versus minimal pneumonitis. There is trace tree-in-bud pneumonitis in the left lower lobe. No lobar consolidation. Pleural space: Unremarkable. No pneumothorax. No pleural effusion. Heart: Unremarkable. No cardiomegaly. No pericardial effusion. Mediastinal space: A small hiatal hernia is present. Lymph nodes: Unremarkable. No enlarged lymph nodes. Liver: There is a diffuse decrease in hepatic parenchymal density, consistent with fatty infiltration. Gallbladder and bile ducts: There has been a cholecystectomy. Bones/joints: Unremarkable. No acute fracture. Soft tissues: Unremarkable. CT/CT angio chest PE protcl [id number] IMPRESSION: 1. There is no pulmonary embolus. 2. There is right basilar atelectasis versus minimal pneumonitis. 3. There is trace tree-in-bud pneumonitis in the left lower lobe. Radiation Dose CTDIVOL = (mGy): DLP = 492.42 (mGy-cm)
--- NOTE | 2020-10-16 17:09 | W.ED.ARRPALP ---
Documented by User: Pilar Willingham 10/16/20 17:59 HPI - Arrhythmia/Palpitations General: Chief Complaint: Arrhythmia/Palpitations Stated Complaint: high heart rate Time Seen by Provider: 10/16/20 16:58 Source: patient and family Mode of arrival: ambulatory Limitations: no limitations History of Present Illness: HPI narrative: Mima is a very nice 65-year-old female who comes in complaining of palpitations. Patient states she has had this numerous times throughout her life she has had an extensive work-up but no cause could ever be determined. Today symptoms were no different than they have been multiple times in the past. Patient denies any chest pain, shortness of breath, syncope or near syncope. Patient of note did recently have an appendectomy and is recovering well. She otherwise denies any complaints or concerns. In the past she says her symptoms were last anywhere from a few minutes to just a few seconds. Today symptoms lasted a few hours and because they did not resolve like they normally do she decided to come into the hospital. Associated symptoms: Deny diaphoresis, nausea, pre-syncope, syncope or vomiting Review of Systems Const: Denies: fever(s), chills, body aches, fatigue, malaise or diaphoresis Eyes: Denies: change in vision, blurry vision, photophobia, eye discomfort, eye discharge, eye redness or yellow eyes ENMT: Denies: throat pain, odynophagia, hoarseness, swelling of lips/tongue, ear or mastoid pain, ear discharge, change in hearing or nasal discharge Card: Reports: palpitations; Denies: chest pain, irregular heart rhythm, edema, lightheadedness, syncope, pre-syncope, dyspnea on exertion or orthopnea Resp: Denies: dyspnea, productive cough, non-productive cough, wheezing, hemoptysis or chest congestion GI: Denies: abdominal pain, nausea, vomiting, hematemesis, coffee ground emesis, heartburn, diarrhea, constipation, GI cramping, hematochezia or melena : Denies: flank pain, dysuria, urinary frequency, urinary urgency or hematuria Musc: Denies: neck pain, back pain, extremity pain, extremity swelling, joint pain, joint swelling, joint redness, joint warmth or joint stiffness Skin/Breast: Denies: rash, pruritus, erythema, skin pain or skin tenderness Neuro: Denies: headache(s), numbness in extremities, weakness in extremities, sensory changes, lack of coordination, difficulty walking, dizziness, vertigo, confusion, Slurred speech present or seizure-like activity [place]/Lymph: Denies: easy bruising, easy bleeding, petechiae, purpura or enlarged lymph nodes All/Imm: Denies: urticaria, throat swelling, tongue swelling, facial swelling or acute wheezing PFSH ED PFSH: Medical History Anxiety disorder Hypothyroidism (acquired) Jerod's thyroiditis Vitamin D deficiency Surgical History Hx laparoscopic cholecystectomy Family History Father No problems noted. Other Diabetes Social History Smoking and tobacco status: former smoker Quit status (tobacco): has quit using tobacco Year quit tobacco: 2009 Former quit date comment: [id number] history prior to quitting Alcohol intake: current Alcohol intake frequency: 0-2 Drinks per Day Alcohol type: hard liquor Substance/Drug Use: current Substance/Drug use frequency: Special occassions/opportunity only Substance/Drug use type: Marijuana Physical Exam Const: COMMON NORMALS: no acute distress, patient oriented x3, no limitations and alert GENERAL APPEARANCE: cooperative HENMT: COMMON NORMALS: normocephalic, atraumatic, external ears normal, EAC's normal and Normal external nose present HEAD & SCALP: normal to inspection, normocephalic and atraumatic FACE & SINUS: normal facial exam and face symmetric NOSE: Normal external nose present and Normal nares present EXTERNAL EAR: Yes external ears normal EXTERNAL AUDITORY CANAL: EAC's normal MOUTH: Normal oral and palatal mucosa present, lip normal and tongue normal Eye: COMMON NORMALS: Equal, round and reactive pupils present and conjunctivae normal GENERAL EYE: appearance normal, both eyes and all related structures ALIGNMENT: Yes alignment normal PERIORBITAL: periorbital findings normal EYELID: eyelids normal CONJUNCTIVA: Yes conjunctivae normal SCLERA: sclerae normal PUPIL: Yes Equal, round and reactive pupils present Neck/C-Spine: COMMON NORMALS: full ROM, no lymphadenopathy, supple, no meningeal signs and no JVD GENERAL: Yes normal visual inspection and Yes trachea midline Chest: COMMONS NORMALS: normal inspection of the chest and normal palpation of entire chest wall Resp: COMMON NORMALS: normal respiratory effort, No retractions, No use of accessory muscles and clear to auscultation bilaterally EFFORT & INSPECTION: Yes able to speak in complete sentences and Yes symmetric chest movement AUSCULTATION: clear to auscultation bilaterally, no crackles, no rales, no rhonchi and no wheezes Cardio: COMMON NORMALS: no JVD, S1 normal heart sound present and S2 normal heart sound present RATE: tachycardic RHYTHM: abnormal rhythm irregularly irregular HEART SOUNDS: S1 normal heart sound present, S2 normal heart sound present, no click, no gallops, no murmurs and no rubs GI: COMMON NORMALS: Soft to palpation and No hepatosplenomegaly present PALPATION: Yes Soft to palpation, No Tenderness to palpation present (GI), No Guarding due to palpation present (GI), No Rigid due to palpation, Yes No hepatosplenomegaly present, No Hernia present, No Palpable mass present and No Pulsatile mass present : COMMON NORMALS: Yes no CVA tenderness BLADDER/KIDNEY EXAM: Yes no CVA tenderness EXTERNAL FEMALE EXAM: No Hernia present Back/Pelvis: COMMON NORMALS: no CVA tenderness, thoracic and lumbar spine normal to inspection, no thoracic nor lumbar tenderness and thoraco-lumbar ROM normal Extremity: COMMON NORMALS: normal to inspection, full ROM, capillary refill normal, no joint enlargement, no clubbing, cyanosis or edema and no calf tenderness Neuro: COMMON NORMALS: patient oriented x3, CN's II-XII intact bilaterally, moves all extremities, no focal motor deficits and no sensory deficits noted SENSORIUM/ORIENTATION: Yes alert MENINGEAL SIGNS: Yes no meningeal signs SPEECH: speech normal Psych: COMMON NORMALS: mental status grossly normal, Normal thought process present, cooperative, normal affect, speech normal and activity/motor behavior normal SPEECH: Yes normal speech THOUGHT PROCESS: Normal thought process present Skin: COMMON NORMALS: no rashes or lesions noted, turgor normal, no jaundice, no petechiae and no mottling GENERAL SKIN EXAM: no rashes or lesions noted and turgor normal Course Vital Signs: Vital signs: Vital Signs Temperature 98 F 10/16/20 16:53 Pulse Rate 100 10/16/20 20:40 Respiratory Rate 19 H 10/16/20 20:26 Blood Pressure 111/60 10/16/20 20:40 Pulse Oximetry 97 10/16/20 20:40 MDM - Arrhythmia/Palpitations Lab Data: Labs: Lab Results 10/16/20 10/16/20 10/16/20 Range/Units 17:20 17:20 17:20 WBC 12.2 H (4.0-10.0) 10^3/ uL RBC 4.46 (4.1-5.3) 10^6/u L Hgb 13.1 (11.5-15.3) g/dL Hct 40.1 (37.0-47.0) % MCV 89.9 (81-99) fL MCH 29.4 (28.0-34.0) pg MCHC 32.7 (30.0-36.0) g/dL RDW 12.3 (12.1-15.1) % Plt Count 284 (130-400) 10^3/c mm MPV 8.8 (7.4-10.4) fL Neut % (Auto) 68.0 % Lymph % (Auto) 20.2 % [place] % (Auto) 7.4 % Eos % (Auto) 1.6 % Baso % (Auto) 0.4 % Neut # (Auto) 8.31 H (1.8-7.7) 10^3/u L Lymph # (Auto) 2.5 (0.8-4.8) 10^3/u L [place] # (Auto) 0.9 (0.2-0.9) 10^3/u L Eos # (Auto) 0.2 (0.0-0.8) 10^3/u L Baso # (Auto) 0.1 (0.0-0.1) 10^3/u L Nucleated RBC % (a uto) 0 % Nucleated RBCs # 0.0 /100WBC PT 13.20 (12.1-14.9) SECO NDS INR 0.97 (0.8-1.2) APTT 24.6 (23.9-36.7) SECO NDS Sodium 142 (136-145) mmol/L Potassium 3.0 L (3.5-5.1) mmol/L Chloride 106 (98-107) mmol/L Carbon Dioxide 25 (22-29) mmol/L Anion Gap 14.0 (5-19) BUN 10 (8-23) mg/dL Creatinine 0.7 (0.5-0.9) mg/dL GFR Calculation 83.7 L (90-130) mL/min Glucose 102 (65-115) mg/dL Calculated Osmolal ity 293 (285-295) mOsm/k g Calcium 9.3 (8.5-10.5) mg/dL Magnesium 2.3 (1.7-2.3) mg/dL Total Bilirubin 0.3 (0.15-1.2) mg/dL AST 16 (0-32) U/L ALT 29 (0-33) U/L Alkaline Phosphata se 87 (35-105) IU/L Troponin T Baselin e (0-10) ng/L Total Protein 5.9 L (6.6-8.7) g/dL Albumin 3.9 (3.5-5.2) g/dL Globulin 2.0 (1.3-4.6) g/dL Free T4 1.24 (0.82-1.77) ng/d L 10/16/ Range/Units 17:20 WBC (4.0-10.0) 10^3/ uL RBC (4.1-5.3) 10^6/u L Hgb (11.5-15.3) g/dL Hct (37.0-47.0) % MCV (81-99) fL MCH (28.0-34.0) pg MCHC (30.0-36.0) g/dL RDW (12.1-15.1) % Plt Count (130-400) 10^3/c mm MPV (7.4-10.4) fL Neut % (Auto) % Lymph % (Auto) % [place] % (Auto) % Eos % (Auto) % Baso % (Auto) % Neut # (Auto) (1.8-7.7) 10^3/u L Lymph # (Auto) (0.8-4.8) 10^3/u L [place] # (Auto) (0.2-0.9) 10^3/u L Eos # (Auto) (0.0-0.8) 10^3/u L Baso # (Auto) (0.0-0.1) 10^3/u L Nucleated RBC % (a uto) % Nucleated RBCs # /100WBC PT (12.1-14.9) SECO NDS INR (0.8-1.2) APTT (23.9-36.7) SECO NDS Sodium (136-145) mmol/L Potassium (3.5-5.1) mmol/L Chloride (98-107) mmol/L Carbon Dioxide (22-29) mmol/L Anion Gap (5-19) BUN (8-23) mg/dL Creatinine (0.5-0.9) mg/dL GFR Calculation (90-130) mL/min Glucose (65-115) mg/dL Calculated Osmolal ity (285-295) mOsm/k g Calcium (8.5-10.5) mg/dL Magnesium (1.7-2.3) mg/dL Total Bilirubin (0.15-1.2) mg/dL AST (0-32) U/L ALT (0-33) U/L Alkaline Phosphata se (35-105) IU/L Troponin T Baselin e 6 (0-10) ng/L Total Protein (6.6-8.7) g/dL Albumin (3.5-5.2) g/dL Globulin (1.3-4.6) g/dL Free T4 (0.82-1.77) ng/d L EKG Data^: EKG 1: Attestation: I personally reviewed and interpreted this EKG as follows: EKG interpretation date: 10/16/20 EKG interpretation time: 16:51 Interpretation: A. fib with RVR with ventricular rate of 172, normal intervals, nonspecific ST and T wave changes. Other EKG comments: Chest CTA 10/16/20 16:58 IMPRESSION: 1. There is no pulmonary embolus. 2. There is right basilar atelectasis versus minimal pneumonitis. 3. There is trace tree-in-bud pneumonitis in the left lower lobe. Radiation Dose CTDIVOL = (mGy): DLP = 492.42 (mGy-cm) Chest X-Ray 10/16/20 16:58 IMPRESSION: The lungs are hyperinflated with mild basilar fibrosis. There is also mild left basilar atelectasis versus scarring. EKG 2: Attestation: I personally reviewed and interpreted this EKG as follows: EKG interpretation date: 10/16/20 EKG interpretation time: 17:40 Interpretation: Normal sinus rhythm 109 beats a minute, normal axis, no blocks, normal intervals, no acute ST-T wave changes. Other EKG comments: Chest CTA 10/16/20 16:58 IMPRESSION: 1. There is no pulmonary embolus. 2. There is right basilar atelectasis versus minimal pneumonitis. 3. There is trace tree-in-bud pneumonitis in the left lower lobe. Radiation Dose CTDIVOL = (mGy): DLP = 492.42 (mGy-cm) Chest X-Ray 10/16/20 16:58 IMPRESSION: The lungs are hyperinflated with mild basilar fibrosis. There is also mild left basilar atelectasis versus scarring. Discharge Plan Discharge Patient Disposition: Home Clinical Impression: Atrial fibrillation Qualifiers: Atrial fibrillation type: paroxysmal Qualified Code(s): I48.0 - Paroxysmal atrial fibrillation Condition: Stable Prescriptions: New aspirin 325 mg tablet 325 mg PO DAILY Qty: 30 RF: 0 metoprolol tartrate 25 mg tablet 12.5 mg PO BID Qty: 60 RF: 0 No Action levothyroxine 88 mcg tablet 88 mcg PO DAILY RF: 0 bupropion HCl [Wellbutrin XL] 300 mg tablet extended release 24 hr 300 mg PO QAM Qty: 90 RF: 3 multivitamin Tablet 1 tab PO DAILY RF: 0 Collagen Peptides See Rx Instructions .ROUTE .COMPLEX RF: 0 Zicam 1 spray NOSTRIL-B PRN RF: 0 hydrocodone-acetaminophen 5-325 mg tablet 1 - 2 tab PO Q5H PRN (Reason: pain) Qty: 20 RF: 0 amoxicillin-pot clavulanate [Augmentin] 500-125 mg tablet 1 tab PO BID Qty: 15 RF: 0 Discharge Orders: Discharge Order (Routine); Ordered 10/16/20 Ordered By: Rsaheed Macdonald Discharge Diet: Advance as tolerated Discharge Activity: Resume usual activity Patient Instructions: Atrial Fibrillation (ED) Activity Restrictions/Additional Instructions: Turn for return of palpitations, development of chest discomfort, shortness of breath, fever greater than 100, other concerning symptoms. Coding Level of Care Code ED Veneer Matcher for Chg 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 Documented by User: Rasheed Macdonald, DO 10/17/20 00:51 HPI - Arrhythmia/Palpitations General: Chief Complaint: Arrhythmia/Palpitations Stated Complaint: high heart rate Time Seen by Provider: 10/16/20 16:58 PFSH ED PFSH: Medical History Anxiety disorder Hypothyroidism (acquired) Jerod's thyroiditis Vitamin D deficiency Surgical History Hx laparoscopic cholecystectomy Family History Father No problems noted. Other Diabetes Social History Smoking and tobacco status: former smoker Quit status (tobacco): has quit using tobacco Year quit tobacco: 2009 Former quit date comment: [id number] history prior to quitting Alcohol intake: current Alcohol intake frequency: 0-2 Drinks per Day Alcohol type: hard liquor Substance/Drug Use: current Substance/Drug use frequency: Special occassions/opportunity only Substance/Drug use type: Marijuana Course Vital Signs: Vital signs: Vital Signs Temperature 98 F 10/16/20 16:53 Pulse Rate 100 10/16/20 20:40 Respiratory Rate 19 H 10/16/20 20:26 Blood Pressure 111/60 10/16/20 20:40 Pulse Oximetry 97 10/16/20 20:40 MDM - Arrhythmia/Palpitations MDM Narrative: Medical decision making narrative: 65-year-old female checked out to me by Dr. Magana. She presents with palpitations. She has had these symptoms before, but they did not last this long. She had an appendectomy recently. Her white blood cell count is 12.2. Her potassium was down to 3.0 which was repleted. Her CTA, done because of the atrial fib, is negative for pulmonary embolism. There may be trace pneumonitis versus atelectasis in the basilar areas. Her troponin was not elevated. She converted. Her blood pressure is mildly soft 96/47. We will treat her with low-dose metoprolol for a rate control, and have her follow-up. She will need to continue work-up as an outpatient Lab Data: Labs: Lab Results 10/16/20 10/16/20 10/16/20 Range/Units 17:20 17:20 17:20 WBC 12.2 H (4.0-10.0) 10^3/ uL RBC 4.46 (4.1-5.3) 10^6/u L Hgb 13.1 (11.5-15.3) g/dL Hct 40.1 (37.0-47.0) % MCV 89.9 (81-99) fL MCH 29.4 (28.0-34.0) pg MCHC 32.7 (30.0-36.0) g/dL RDW 12.3 (12.1-15.1) % Plt Count 284 (130-400) 10^3/c mm MPV 8.8 (7.4-10.4) fL Neut % (Auto) 68.0 % Lymph % (Auto) 20.2 % [place] % (Auto) 7.4 % Eos % (Auto) 1.6 % Baso % (Auto) 0.4 % Neut # (Auto) 8.31 H (1.8-7.7) 10^3/u L Lymph # (Auto) 2.5 (0.8-4.8) 10^3/u L [place] # (Auto) 0.9 (0.2-0.9) 10^3/u L Eos # (Auto) 0.2 (0.0-0.8) 10^3/u L Baso # (Auto) 0.1 (0.0-0.1) 10^3/u L Nucleated RBC % (a uto) 0 % Nucleated RBCs # 0.0 /100WBC PT 13.20 (12.1-14.9) SECO NDS INR 0.97 (0.8-1.2) APTT 24.6 (23.9-36.7) SECO NDS Sodium 142 (136-145) mmol/L Potassium 3.0 L (3.5-5.1) mmol/L Chloride 106 (98-107) mmol/L Carbon Dioxide 25 (22-29) mmol/L Anion Gap 14.0 (5-19) BUN 10 (8-23) mg/dL Creatinine 0.7 (0.5-0.9) mg/dL GFR Calculation 83.7 L (90-130) mL/min Glucose 102 (65-115) mg/dL Calculated Osmolal ity 293 (285-295) mOsm/k g Calcium 9.3 (8.5-10.5) mg/dL Magnesium 2.3 (1.7-2.3) mg/dL Total Bilirubin 0.3 (0.15-1.2) mg/dL AST 16 (0-32) U/L ALT 29 (0-33) U/L Alkaline Phosphata se 87 (35-105) IU/L Troponin T Baselin e (0-10) ng/L Total Protein 5.9 L (6.6-8.7) g/dL Albumin 3.9 (3.5-5.2) g/dL Globulin 2.0 (1.3-4.6) g/dL Free T4 1.24 (0.82-1.77) ng/d L //20 Range/Units 17:20 WBC (4.0-10.0) 10^3/ uL RBC (4.1-5.3) 10^6/u L Hgb (11.5-15.3) g/dL Hct (37.0-47.0) % MCV (81-99) fL MCH (28.0-34.0) pg MCHC (30.0-36.0) g/dL RDW (12.1-15.1) % Plt Count (130-400) 10^3/c mm MPV (7.4-10.4) fL Neut % (Auto) % Lymph % (Auto) % [place] % (Auto) % Eos % (Auto) % Baso % (Auto) % Neut # (Auto) (1.8-7.7) 10^3/u L Lymph # (Auto) (0.8-4.8) 10^3/u L [place] # (Auto) (0.2-0.9) 10^3/u L Eos # (Auto) (0.0-0.8) 10^3/u L Baso # (Auto) (0.0-0.1) 10^3/u L Nucleated RBC % (a uto) % Nucleated RBCs # /100WBC PT (12.1-14.9) SECO NDS INR (0.8-1.2) APTT (23.9-36.7) SECO NDS Sodium (136-145) mmol/L Potassium (3.5-5.1) mmol/L Chloride (98-107) mmol/L Carbon Dioxide (22-29) mmol/L Anion Gap (5-19) BUN (8-23) mg/dL Creatinine (0.5-0.9) mg/dL GFR Calculation (90-130) mL/min Glucose (65-115) mg/dL Calculated Osmolal ity (285-295) mOsm/k g Calcium (8.5-10.5) mg/dL Magnesium (1.7-2.3) mg/dL Total Bilirubin (0.15-1.2) mg/dL AST (0-32) U/L ALT (0-33) U/L Alkaline Phosphata se (35-105) IU/L Troponin T Baselin e 6 (0-10) ng/L Total Protein (6.6-8.7) g/dL Albumin (3.5-5.2) g/dL Globulin (1.3-4.6) g/dL Free T4 (0.82-1.77) ng/d L EKG Data^: EKG 1: Other EKG comments: Chest CTA 10/16/20 16:58 IMPRESSION: 1. There is no pulmonary embolus. 2. There is right basilar atelectasis versus minimal pneumonitis. 3. There is trace tree-in-bud pneumonitis in the left lower lobe. Radiation Dose CTDIVOL = (mGy): DLP = 492.42 (mGy-cm) Chest X-Ray 10/16/20 16:58 IMPRESSION: The lungs are hyperinflated with mild basilar fibrosis. There is also mild left basilar atelectasis versus scarring. EKG 2: Other EKG comments: Chest CTA 10/16/20 16:58 IMPRESSION: 1. There is no pulmonary embolus. 2. There is right basilar atelectasis versus minimal pneumonitis. 3. There is trace tree-in-bud pneumonitis in the left lower lobe. Radiation Dose CTDIVOL = (mGy): DLP = 492.42 (mGy-cm) Chest X-Ray 10/16/20 16:58 IMPRESSION: The lungs are hyperinflated with mild basilar fibrosis. There is also mild left basilar atelectasis versus scarring. Discharge Plan Discharge Patient Disposition: Home Clinical Impression: Atrial fibrillation Qualifiers: Atrial fibrillation type: paroxysmal Qualified Code(s): I48.0 - Paroxysmal atrial fibrillation Condition: Stable Prescriptions: New aspirin 325 mg tablet 325 mg PO DAILY Qty: 30 RF: 0 metoprolol tartrate 25 mg tablet 12.5 mg PO BID Qty: 60 RF: 0 No Action levothyroxine 88 mcg tablet 88 mcg PO DAILY RF: 0 bupropion HCl [Wellbutrin XL] 300 mg tablet extended release 24 hr 300 mg PO QAM Qty: 90 RF: 3 multivitamin Tablet 1 tab PO DAILY RF: 0 Collagen Peptides See Rx Instructions .ROUTE .COMPLEX RF: 0 Zicam 1 spray NOSTRIL-B PRN RF: 0 hydrocodone-acetaminophen 5-325 mg tablet 1 - 2 tab PO Q5H PRN (Reason: pain) Qty: 20 RF: 0 amoxicillin-pot clavulanate [Augmentin] 500-125 mg tablet 1 tab PO BID Qty: 15 RF: 0 Discharge Orders: Discharge Order (Routine); Ordered 10/16/20 Ordered By: Rasheed Macdonald Discharge Diet: Advance as tolerated Discharge Activity: Resume usual activity Patient Instructions: Atrial Fibrillation (ED) Activity Restrictions/Additional Instructions: Turn for return of palpitations, development of chest discomfort, shortness of breath, fever greater than 100, other concerning symptoms. Coding Level of Care Code ED Veneer Matcher for Giovannig 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
[2020-10-16 17:27] LABS: Basophils # 0.1 10^3/uL (0.0-0.1); Basophils % 0.4 %; Eosinophils # 0.2 10^3/uL (0.0-0.8); Eosinophils % 1.6 %; Hematocrit 40.1 % (37.0-47.0); Hemoglobin 13.1 g/dL (11.5-15.3); Lymphocytes # 2.5 10^3/uL (0.8-4.8); Lymphocytes % 20.2 %; Mean Corpuscular HGB Conc 32.7 g/dL (30.0-36.0); Mean Corpuscular Hemoglobin 29.4 pg (28.0-34.0); Mean Corpuscular Volume 89.9 fL (81-99); Mean Platelet Volume 8.8 fL (7.4-10.4); Monocytes # 0.9 10^3/uL (0.2-0.9); Monocytes % 7.4 %; Neutrophils # 8.31 10^3/uL (1.8-7.7); Nucleated Red Blood Cells % 0 %; Platelet Count 284 10^3/cmm (130-400); Red Blood Count 4.46 10^6/uL (4.1-5.3); Red Cell Distribution Width 12.3 % (12.1-15.1); White Blood Count 12.2 10^3/uL (4.0-10.0)
[2020-10-16 17:30] VITALS: BP 78/61; PULSE 110; RESP 20; O2SAT 97
[2020-10-16] MEDS: sodium chloride 0.9% 1,000 ML 100 ML IV (17:31)
[2020-10-16 17:42] LABS: INR 0.97 (0.8-1.2); Partial Thromboplastin Time 24.6 SECONDS (23.9-36.7)
[2020-10-16 17:50] LABS: Troponin(5th) Baseline 6 ng/L (0-10)
[2020-10-16 17:59] LABS: Alanine Aminotransferase 29 U/L (0-33); Albumin Level 3.9 g/dL (3.5-5.2); Alkaline Phosphatase 87 IU/L (35-105); Aspartate Amino Transferase 16 U/L (0-32); Blood Urea Nitrogen 10 mg/dL (8-23); Calcium 9.3 mg/dL (8.5-10.5); Carbon Dioxide 25 mmol/L (22-29); Chloride 106 mmol/L (98-107); Free T4 Free Thyroxine 1.24 ng/dL (0.82-1.77); Glomerular Filtration Rate 83.7 mL/min (90-130); Glucose 102 mg/dL (65-115); Magnesium 2.3 mg/dL (1.7-2.3); Osmolality Calculated 293 mOsm/kg (285-295); Sodium 142 mmol/L (136-145); Total Bilirubin 0.3 mg/dL (0.15-1.2); Total Protein 5.9 g/dL (6.6-8.7)
[2020-10-16 18:15] VITALS: BP 116/68; PULSE 102; RESP 18; O2SAT 98
[2020-10-16] MEDS: iohexol 350 mg/mL 100 mL Btl IV (18:16)
[2020-10-16 19:15] VITALS: BP 109/82; PULSE 98; RESP 18; O2SAT 99
[2020-10-16 20:26] VITALS: BP 109/56; PULSE 101; RESP 19; O2SAT 98
[2020-10-16 20:40] VITALS: BP 111/60; PULSE 100; O2SAT 97
--- NOTE | 2020-10-16 23:03 | ECG_ITS ---
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 Measurements Intervals [place] Rate: 109 P: 61 WV: 136 QRS: 90 QRSD: 72 T: 72 QT: 328 QTc: 442 Interpretive Statements SINUS TACHYCARDIA SEPTAL MYOCARDIAL INFARCTION , OF INDETERMINATE AGE [40+ ms Q WAVE IN V1/V2] Compared to ECG 10/13/2020 06:40:33 Sinus rhythm no longer present Myocardial infarct finding still present Electronically Signed On 10-17-2020 19:15:12 CONTRACT TECHNICIAN by Jimenez Harding M.D. [id number]
== END 2020-10-16 20:40 | disposition home or self-care (01) ==
PROVIDERS: Emergency Medicine; Emergency Provider Emergency Medicine
DX: I48.0 Paroxysmal atrial fibrillation (principal); Z87.891 Personal history of nicotine dependence
CPT/HCPCS: 12345; 71045; 71275; 80053; 83735; 84439; 84484; 85025; 85610; 85730; 93005; 96360; 96361; 99283; 99284; J7030; Q9967

== ENCOUNTER → 2020-11-30 15:01 | Outpatient (BNVA) | payer MEDICARE, OTHER, SELFPAY | PROVIDERS: Visit Provider Nurse Practitioner Family | DX: Z20.828 Contact with and (suspected) exposure to other viral communicable diseases (principal); J06.9 Acute upper respiratory infection, unspecified | CPT/HCPCS: 87635 ==

== ENCOUNTER 2020-12-06 13:00 | Outpatient (CLI) | payer MEDICARE, OTHER, SELFPAY ==
[2020-12-06 13:21] VITALS: BMI 27.1
[2020-12-06 13:31] VITALS: BP 139/73; PULSE 98; RESP 18; O2SAT 98
[2020-12-06 14:33] VITALS: BP 125/69; PULSE 93; RESP 16; O2SAT 96
[2020-12-06 15:14] VITALS: BP 126/77; PULSE 101; RESP 18; O2SAT 97
[2020-12-06 16:24] VITALS: BP 130/70; PULSE 97; RESP 16; O2SAT 98
== END 2020-12-06 16:26 | disposition home or self-care (01) ==
LOC: OPS 13:03
PROVIDERS: PCP Registered Nurse; Visit Provider Nurse Practitioner Family
DX: U07.1 COVID-19 (principal)
CPT/HCPCS: 96365; J7050

== ENCOUNTER → 2021-02-18 10:06 | Outpatient (BNVA) | payer MEDICARE, OTHER, SELFPAY | PROVIDERS: PCP Registered Nurse; Visit Provider Registered Nurse | DX: F41.1 Generalized anxiety disorder (principal); Z13.6 Encounter for screening for cardiovascular disorders; E55.9 Vitamin D deficiency, unspecified; E03.9 Hypothyroidism, unspecified; Z00.00 Encounter for general adult medical examination without abnormal findings; Z12.2 Encounter for screening for malignant neoplasm of respiratory organs; F17.200 Nicotine dependence, unspecified, uncomplicated | CPT/HCPCS: 80053; 80061; 81000; 82306; 84443; 85025 ==

== ENCOUNTER 2021-03-02 12:39 | Outpatient (CLI) | payer MEDICARE, OTHER, SELFPAY ==
--- NOTE | 2021-03-02 12:48 | CT_ITS ---
WS: [id number] LDCT LUNG CANCER SCREENING TECHNIQUE: Noncontrast CT of the chest with coronal and sagittal reformatted images. CLINICAL INFORMATION: TOBACCO USE COMPARISON: CTA chest October 16, 2020 DLP: 51.42 mGy.cm DIvol: 1.[address] scans at [facility] use at least one of these dose optimization techniques: automat ed exposure control; mA and/or kV adjustment per patient size (includes targeted exams where dose is matched to clinical indication); or iterative reconstruction. FINDINGS: Tiny 2 mm subpleural nodule left upper lobe and right lower lobe. Calcified granuloma right upper lob e. Additional tiny noncalcified subpleural nodule in the lingula measuring 3 mm. No other suspicious pulmonary parenchymal opacities. No consolidation or pleural fluid. No acute pulmonary infiltrates. N o mediastinal or hilar lymphadenopathy. Aortic calcification. No axillary lymphadenopathy. Normal GE junction. Adrenal glands are normal. Mild thoracic kyphosis. CT/CT lung screening [id number] IMPRESSION: LUNG-RADS: 2-Benign Appearance or Behavior FOLLOW UP: 12 Month: Continue annual screening with LDCT
== END 2021-03-02 12:40 | disposition home or self-care (01) ==
LOC: CT 12:42
PROVIDERS: PCP Registered Nurse; Visit Provider Internal Medicine Critical Care Medicine
DX: Z12.2 Encounter for screening for malignant neoplasm of respiratory organs (principal); Z87.891 Personal history of nicotine dependence; R91.1 Solitary pulmonary nodule; J84.10 Pulmonary fibrosis, unspecified
CPT/HCPCS: 71271

== ENCOUNTER 2021-04-15 12:50 | Outpatient (CLI) | payer MEDICARE, OTHER, SELFPAY ==
--- NOTE | 2021-04-15 12:56 | MM_ITS ---
WS: [id number] BILATERAL DIGITAL SCREENING MAMMOGRAPHY WITH CAD CLINICAL INFORMATION: SCREENING HISTORY: Screening mammogram. No current complaints. COMPARISON: February 02, 2020 TECHNIQUE: Bilateral CC and MLO views. FINDINGS: The breasts are composed of heterogeneous fibroglandular density tissue, which can limit the detectio n of small underlying mass lesions. A few punctate and lucent centered calcifications. No suspicious mass, asymmetry, calcifications, or architectural distortion. No evidence of malignancy. MM/[place] [id number] IMPRESSION: BI-RADS: 2-Benign FOLLOW UP: 1 Year Follow-up Recommend return to annual screening mammography.
== END 2021-04-15 12:51 | disposition home or self-care (01) ==
LOC: RADSHAW 12:52
PROVIDERS: PCP Registered Nurse; Visit Provider Registered Nurse
DX: Z12.31 Encounter for screening mammogram for malignant neoplasm of breast (principal)
CPT/HCPCS: 77067

== ENCOUNTER → 2022-02-20 12:56 | Outpatient (BNVA) | payer MEDICARE, OTHER, SELFPAY | PROVIDERS: PCP Registered Nurse; Visit Provider Internal Medicine Critical Care Medicine | DX: Z12.2 Encounter for screening for malignant neoplasm of respiratory organs (principal); Z87.891 Personal history of nicotine dependence; Z86.16 Personal history of COVID-19; E03.9 Hypothyroidism, unspecified; F41.9 Anxiety disorder, unspecified | CPT/HCPCS: 99213 ==

== ENCOUNTER → 2022-02-27 11:19 | Outpatient (BNVA) | payer MEDICARE, OTHER, SELFPAY | PROVIDERS: PCP Registered Nurse; Visit Provider Registered Nurse | DX: E55.9 Vitamin D deficiency, unspecified (principal); E03.9 Hypothyroidism, unspecified; Z13.6 Encounter for screening for cardiovascular disorders; Z12.31 Encounter for screening mammogram for malignant neoplasm of breast; Z00.00 Encounter for general adult medical examination without abnormal findings; Z53.20 Procedure and treatment not carried out because of patient's decision for unspecified reasons; Z71.85 Encounter for immunization safety counseling | CPT/HCPCS: 80061; 82306; 84443; 85025 ==

== ENCOUNTER → 2022-03-09 00:01 | Outpatient (BNVA) | payer MEDICARE, OTHER, SELFPAY | PROVIDERS: PCP Registered Nurse; Visit Provider Registered Nurse | DX: E03.9 Hypothyroidism, unspecified (principal) | CPT/HCPCS: 80053 ==

== ENCOUNTER 2022-03-20 14:42 | Outpatient (CLI) | payer MEDICARE, OTHER, SELFPAY ==
--- NOTE | 2022-03-20 15:00 | CT_ITS ---
WS: [id number] LDCT LUNG CANCER SCREENING HISTORY: Lung cancer screening TECHNIQUE: Axial imaging performed from the apices to 1 cm below the costophrenic angles. Coronal and sagittal reformats are submitted with axial MIP series. All CT scans at [facility] use at least one of these dose optimization techniques: automated exposure control; mA and/or kV adjustment per patient size (includes targeted exams where dose is matched to clinical indication); or iterativ e reconstruction. DLP: 86.29 mGy.cm DIvol: Mean CTDIvol: 1.60 (mGy) COMPARISON: 03/02/2021 Diagnostic quality: Satisfactory Lung Nodules: No change in the bilateral micronodules in the LEFT upper and RIGHT lower lobes measuri ng 2 mm. Some of these nodules are calcified and there are additional nodules which are noncalcified and subpleural. No new nodule or increasing size of the nodule since 03/02/2021. No endobronchial lesion. Lungs: Hyperexpanded lungs. Heart: Normal size heart. Other findings: Atherosclerosis thoracic aorta. Mild circumferential wall thickening of the distal es ophagus. No adrenal mass. Prior cholecystectomy. Hepatic steatosis. CT/CT lung screening [id number] IMPRESSION: LUNG-RADS: 2-Benign Appearance or Behavior FOLLOW UP: 12 Month: Continue annual screening with LDCT OTHER FINDINGS (S MODIFIER): None.
== END 2022-03-20 14:43 | disposition home or self-care (01) ==
LOC: RAD 14:46
PROVIDERS: PCP Registered Nurse; Visit Provider Internal Medicine Critical Care Medicine
DX: Z13.83 Encounter for screening for respiratory disorder NEC (principal); Z87.891 Personal history of nicotine dependence; E55.9 Vitamin D deficiency, unspecified
CPT/HCPCS: 71271

== ENCOUNTER → 2022-04-06 13:52 | Outpatient (BNVA) | payer MEDICARE, OTHER, SELFPAY | PROVIDERS: PCP Registered Nurse; Referring Provider Registered Nurse; Visit Provider Internal Medicine | DX: E89.0 Postprocedural hypothyroidism (principal); R00.2 Palpitations | CPT/HCPCS: 99204 ==

== ENCOUNTER → 2022-06-13 10:14 | Outpatient (BNVA) | payer MEDICARE, OTHER, SELFPAY | PROVIDERS: PCP Registered Nurse; Visit Provider Registered Nurse | DX: E03.9 Hypothyroidism, unspecified (principal) | CPT/HCPCS: 84439; 84443 ==

== ENCOUNTER → 2023-02-28 11:58 | Outpatient (BNVA) | payer MEDICARE, OTHER, SELFPAY | PROVIDERS: PCP Registered Nurse; Visit Provider Registered Nurse | DX: E03.9 Hypothyroidism, unspecified (principal); E89.0 Postprocedural hypothyroidism; Z13.6 Encounter for screening for cardiovascular disorders; E55.9 Vitamin D deficiency, unspecified; Z13.1 Encounter for screening for diabetes mellitus | CPT/HCPCS: 80053; 80061; 82306; 83036; 84443; 85025 ==

== ENCOUNTER → 2023-04-11 11:10 | Outpatient (BNVA) | payer MEDICARE, OTHER, SELFPAY | PROVIDERS: PCP Registered Nurse; Visit Provider Registered Nurse | DX: E03.9 Hypothyroidism, unspecified (principal) | CPT/HCPCS: 84443 ==

== ENCOUNTER → 2023-06-11 14:26 | Outpatient (BNVA) | payer MEDICARE, OTHER, SELFPAY | PROVIDERS: PCP Registered Nurse; Visit Provider Dermatology | DX: D69.2 Other nonthrombocytopenic purpura (principal); L02.821 Furuncle of head [any part, except face]; I78.8 Other diseases of capillaries; L81.4 Other melanin hyperpigmentation; L82.1 Other seborrheic keratosis; L57.0 Actinic keratosis | CPT/HCPCS: 17000; 99213 ==

== ENCOUNTER 2023-07-27 13:43 | Outpatient (CLI) | payer MEDICARE, OTHER, SELFPAY ==
--- NOTE | 2023-07-27 13:45 | CT_ITS ---
WS: [id number] LDCT LUNG CANCER SCREENING HISTORY: Z12.2 - Encounter for screening for malignant neoplasm TECHNIQUE: Axial imaging performed from the apices to 1 cm below the costophrenic angles. Coronal and sagittal reformats are submitted with axial MIP series. All CT scans at [facility] use at least one of these dose optimization techniques: automated exposure control; mA and/or kV adjustment per patient size (includes targeted exams where dose is matched to clinical indication); or iterativ e reconstruction. DLP: 47.52 mGy.cm DIvol: Mean CTDIvol: 1.00 (mGy) COMPARISON: 03/20/2022 Diagnostic quality: Satisfactory Lungs: Chronic hyperinflation. There are a few scattered micronodules. There are few scattered granul omata. No new or enlarging masses or nodules. No endobronchial lesions. Heart: Normal size heart with no pericardial effusion.. Other findings: Mild atherosclerosis aorta. No adenopathy. IMPRESSION: CT/CT lung screening [id number] LUNG-RADS: 2-Benign Appearance or Behavior FOLLOW UP: 12 Month: Continue annual screening with LDCT OTHER FINDINGS (S MODIFIER): None.
== END 2023-07-27 13:44 | disposition home or self-care (01) ==
PROVIDERS: PCP Registered Nurse; Visit Provider Registered Nurse
DX: Z12.2 Encounter for screening for malignant neoplasm of respiratory organs (principal)
CPT/HCPCS: 71271

== ENCOUNTER → 2023-09-12 11:03 | Outpatient (BNVA) | payer MEDICARE, OTHER, SELFPAY | PROVIDERS: PCP Registered Nurse; Visit Provider Registered Nurse | DX: E03.9 Hypothyroidism, unspecified (principal); E07.9 Disorder of thyroid, unspecified; E89.0 Postprocedural hypothyroidism | CPT/HCPCS: 84443 ==

== ENCOUNTER → 2023-12-13 11:07 | Outpatient (BNVA) | payer MEDICARE, OTHER, SELFPAY | PROVIDERS: PCP Registered Nurse; Visit Provider Registered Nurse | DX: E03.9 Hypothyroidism, unspecified (principal) | CPT/HCPCS: 84443 ==

== ENCOUNTER → 2024-03-17 12:05 | Outpatient (BNVA) | payer MEDICARE, OTHER, SELFPAY | PROVIDERS: PCP Registered Nurse; Visit Provider Registered Nurse | DX: Z00.00 Encounter for general adult medical examination without abnormal findings (principal); E89.0 Postprocedural hypothyroidism; Z13.6 Encounter for screening for cardiovascular disorders; E55.9 Vitamin D deficiency, unspecified; E03.9 Hypothyroidism, unspecified; E78.5 Hyperlipidemia, unspecified | CPT/HCPCS: 80053; 80061; 82306; 84439; 84443; 85025 ==

== ENCOUNTER → 2024-06-18 13:47 | Outpatient (BNVA) | payer MEDICARE, OTHER, SELFPAY | PROVIDERS: PCP Registered Nurse; Visit Provider Nurse Practitioner Family | DX: L57.0 Actinic keratosis (principal); D69.2 Other nonthrombocytopenic purpura; L02.821 Furuncle of head [any part, except face]; I78.8 Other diseases of capillaries; L81.4 Other melanin hyperpigmentation; L82.1 Other seborrheic keratosis; L82.0 Inflamed seborrheic keratosis | CPT/HCPCS: 17000; 17110; 99213 ==

== ENCOUNTER → 2024-06-30 10:42 | Outpatient (BNVA) | payer MEDICARE, OTHER, SELFPAY | PROVIDERS: PCP Registered Nurse; Visit Provider Registered Nurse | DX: E89.0 Postprocedural hypothyroidism (principal) | CPT/HCPCS: 84439; 84443 ==

== ENCOUNTER → 2025-03-30 15:51 | Outpatient (BNVA) | payer MEDICARE, OTHER, SELFPAY | PROVIDERS: PCP Registered Nurse; Visit Provider Registered Nurse | DX: E03.9 Hypothyroidism, unspecified (principal); Z13.6 Encounter for screening for cardiovascular disorders; E55.9 Vitamin D deficiency, unspecified | CPT/HCPCS: 80053; 80061; 82306; 84443; 85025 ==

== ENCOUNTER → 2025-07-14 15:23 | Outpatient (BNVA) | payer MEDICARE, OTHER, SELFPAY | PROVIDERS: PCP Registered Nurse; Visit Provider Nurse Practitioner Family | DX: D48.5 Neoplasm of uncertain behavior of skin (principal); D69.2 Other nonthrombocytopenic purpura; I78.8 Other diseases of capillaries; L81.4 Other melanin hyperpigmentation; L82.0 Inflamed seborrheic keratosis; R20.8 Other disturbances of skin sensation; L53.8 Other specified erythematous conditions; Z78.9 Other specified health status; L29.89 Other pruritus; L57.0 Actinic keratosis | CPT/HCPCS: 17000; 17110; 99213 ==

== ENCOUNTER 2025-07-20 16:17 | Outpatient (CLI) | payer MEDICARE, OTHER, SELFPAY ==
--- NOTE | 2025-07-20 16:30 | US_ITS ---
WS: [id number] ULTRASOUND SOFT TISSUES LEFT thigh HISTORY: LT THIGH MASS COMPARISON: None available. TECHNIQUE: 2-D and color Doppler imaging is submitted. Patient directed ultrasound to the mid LEFT thigh. In the mid LEFT thigh there is a predominantly hyperechoic mass with central decreased echogenicity in the mid LEFT thigh. This mass isn't encapsulated with mild central increased vascularity. Mass measures 3.2 x 2.8 x 1.4 cm. No adjacent fluid. US/US soft tissue/extremity [id number] IMPRESSION: Mixed echogenicity but predominant hyperechoic mass in the mid LEFT thigh. Ther e is slight vascularity centrally. This would be unusual for a lipoma. This may be an area of fat necrosis. If this is causing pain or enlarging in size consi jael MRI evaluation of the LEFT thigh with and without contrast for further eval uation.
== END 2025-07-20 16:18 | disposition home or self-care (01) ==
LOC: RAD 16:20
PROVIDERS: PCP Registered Nurse; Visit Provider Nurse Practitioner Family
DX: D17.24 Benign lipomatous neoplasm of skin and subcutaneous tissue of left leg (principal)
CPT/HCPCS: 76882

== ENCOUNTER 2025-08-17 14:16 | Outpatient (CLI) | payer MEDICARE, OTHER, SELFPAY ==
--- NOTE | 2025-08-17 14:24 | MR_ITS ---
WS: [id number] MRI LEFT FEMUR WITH AND WITHOUT CONTRAST. COMPARISON: Soft tissue ultrasound 07/20/2025 Multiplanar, multisequence imaging is performed with and without contrast. Sagittal and axial T1 fat sat sequences post-MultiHance 12 cc IV. History: Palpable mass mid LEFT thigh. MRI recommended after ultrasound performed on 07/20/2025. No obvious mass is identified throughout the LEFT thigh. The mass described by recent ultrasound is not definitely visualized by MRI. This is most indicative of a lipomatous mass. There is no area of abnormal enhancement. There is no edema within the muscles or osseous structures. No muscle atrophy. MR/MR femur LT wo/w con [id number] IMPRESSION: 1. No soft tissue mass or area of abnormal enhancement is noted within the LEF T thigh. There is no corresponding mass to correlate with the ultrasound findin gs. This most likely is indicative of a lipomatous mass which blends in with th e remaining soft tissue changes. No muscle edema. 2. No fluid collection.
[2025-08-17] MEDS: gadobenate dimeglumine 20 mL vial 12 ML IV (15:45)
== END 2025-08-17 14:17 | disposition home or self-care (01) ==
PROVIDERS: PCP Registered Nurse; Visit Provider Nurse Practitioner Family
DX: R22.9 Localized swelling, mass and lump, unspecified (principal)
CPT/HCPCS: 73720; A9577